=== PATIENT | female | born 1990 | race Caucasian/White ===

== ENCOUNTER → 2024-07-21 13:47 | Outpatient (REF) | payer BC, SELFPAY | LOC: PNTC 13:47 | PROVIDERS: ATTENDING PHYSICIAN Obstetrics & Gynecology | DX: O09.519 Supervision of elderly primigravida, unspecified trimester (principal) | CPT/HCPCS: 76805 ==

== ENCOUNTER → 2024-08-18 13:45 | Outpatient (REF) | payer BC, SELFPAY | LOC: PNTC 13:45 | PROVIDERS: ATTENDING PHYSICIAN Obstetrics & Gynecology | DX: O09.519 Supervision of elderly primigravida, unspecified trimester (principal) | CPT/HCPCS: 76811 ==

== ENCOUNTER 2024-09-15 17:33 | Inpatient (IN) | payer BC, SELFPAY ==
[2024-09-15 17:04] VITALS: BP 191/96; BMI 32.8
[2024-09-15] MEDS: TRANDATE 20 MG IV (17:08)
[2024-09-15 17:10] LABS: Urine Albumin 3+ (Neg - Trace); Urine Bilirubin 1+ (Negative); Urine Character Clear (Clear); Urine Color Yellow; Urine Glucose Negative (Negative); Urine Ketone Negative (Negative); Urine Leukocyte Negative (Negative); Urine Nitrite Negative (Negative); Urine Occult Blood 1+ (Negative); Urine Urobilinogen Negative (Neg - 1+)
[2024-09-15 17:10] LABS: Hematocrit 30.1 % (37.0-47.0); Hemoglobin 10.2 g/dL (12.0-16.0); Mean Corp Hgb Conc. 33.9 g/dL (33.0-37.0); Mean Corpuscular Hgb 31.4 pg (27.0-31.0); Mean Corpuscular Volume 92.6 fL (81.0-99.0); Mean Platelet Volume 8.9 fL (7.4-10.4); Platelet Count 159 10^3/uL (130-400); Red Blood Cell Count 3.25 10^6/uL (4.20-5.40); Red Cell Dist. Width 15.2 % (11.5-14.5); White Blood Cell Count 10.7 10^3/uL (4.8-10.8)
[2024-09-15 17:14] LABS: Urine Red Blood Cell 0-2 /HPF (0-2)
[2024-09-15 17:27] LABS: ALT (SGPT) 16 U/L (0-35); AST (SGOT) 33 U/L (14-36); Albumin 3.3 g/dl (3.5-5.0); Alkaline Phosphatase 160 U/L (38-126); Blood Urea Nitrogen 13 mg/dl (7-17); Calcium 8.5 mg/dl (8.4-10.2); Carbon Dioxide 12 mmol/L (22-30); Chloride 111 mmol/L (98-107); Estimated Creatinine Clearance 115 ml/min; Glucose 84 mg/dl (70-99); Potassium 4.5 mmol/L (3.5-5.1); Sodium 134 mmol/L (135-145); Total Bilirubin 1.2 mg/dl (0.2-1.3); Total Protein 6.2 g/dl (6.3-8.2); eGFR > 60.00
[2024-09-15] MEDS: MAGNESIUM SULFATE 100 IV (17:28)
[2024-09-15] MEDS: LR 1000 IV (17:29)
[2024-09-15] MEDS: TRANDATE 40 MG IV (17:37)
[2024-09-15] MEDS: FLUSH (NSS) 1 FLUSH IV (17:41)
[2024-09-15] MEDS: MAGNESIUM SULFATE 40 GRAM 1000 IV (17:54)
[2024-09-15] MEDS: CELESTONE SOLUSPAN 2 MG IM (17:58)
[2024-09-15 18:08] LABS: Urine Protein 1833 mg/dl
[2024-09-15] MEDS: TRANDATE 80 MG IV (18:56)
== END 2024-09-15 20:45 | disposition short-term general hospital (02) | DRG 833 ==
LOC: LDRP 17:33
PROVIDERS: ADMITTING PHYSICIAN Student in an Organized Health Care Education/Training Program; FAMILY PHYSICIAN Nurse Practitioner
DX: O14.12 Severe pre-eclampsia, second trimester (principal); Z3A.24 24 weeks gestation of pregnancy; O09.512 Supervision of elderly primigravida, second trimester; O99.352 Diseases of the nervous system complicating pregnancy, second trimester; G62.9 Polyneuropathy, unspecified
CPT/HCPCS: 80053; 81003; 81015; 82570; 84156; 85027; G0378